=== PATIENT | female | born 1935 | race African-American/Black ===

== ENCOUNTER 2023-10-13 14:35 | Inpatient (IN) | payer OTHER ==
[~2023-10-13] VITALS: Ht 160 cm; Wt 81.8 kg
[2023-10-13 01:56] VITALS: PULSE 81; RESP 18; O2SAT 95
[2023-10-13 16:56] LABS: Basophils # (auto) 0 10 ^3/uL (0-0.2); Basophils % (auto) 0.5 % (0.0-2.0); Eosinophils # (auto) 0.2 10 ^3/uL (0-0.8); Eosinophils % (auto) 3.8 % (0.0-7.0); Hematocrit 28.3 % (36.0-46.0); Hemoglobin 9.6 g/dL (12.2-16.2); Lymphocytes # (auto) 1.7 10 ^3/uL (0.4-5.4); Lymphocytes % (auto) 34.6 % (10.0-50.0); Mean Corpuscular Hemoglobin 28.1 pg (28.0-32.0); Mean Corpuscular Volume 82.7 fL (80.0-100.0); Monocytes # (auto) 0.4 10 ^3/uL (0-1.3); Monocytes % (auto) 8.1 % (0.0-12.0); Neutrophils # (auto) 2.6 10 ^3/uL (1.6-8.6); Red Blood Cells 3.43 10^6/uL (4.0-5.20); Red Cell Distribution Width 19.6 % (11.8-14.3); White Blood Cell 4.9 10^3/uL (4.4-10.8)
[2023-10-13 17:08] LABS: Albumin 2.7 g/dL (3.2-4.8); Alkaline Phosphatase 32 U/L (46-116); Anion Gap 0 (5-15); Aspartate Aminotransferase 21 U/L (13-40); BUN/Creatinine Ratio 9.9 (10.0-20.0); Blood Urea Nitrogen 8 mg/dL (9-23); Calcium 8.8 mg/dL (8.7-10.4); Carbon Dioxide 37 mmol/L (20-30); Chloride 98 mmol/L (98-107); Glucose 99 mg/dL (74-106); Lipase 22 U/L (12-53); Potassium 3.7 mmol/L (3.5-5.1); Sodium 135 mmol/L (136-145)
[2023-10-13 17:09] LABS: Alanine Aminotransferase < 9 U/L (7-40); Bilirubin, Total 0.4 mg/dL (0.2-1.0)
[2023-10-13] MEDS ORDERED: FLUC150T47 PO (17:29)
[2023-10-13] MEDS ORDERED: PANT40TA57 PO (17:29)
[2023-10-13] MEDS ORDERED: PREG75CA90 PO (17:29)
[2023-10-13] MEDS ORDERED: ALPR1TAB7 PO (17:29)
[2023-10-13] MEDS ORDERED: ACETAMINOPHEN 325 MG TAB PO PRN (17:30)
[2023-10-13 18:12] LABS: Triglycerides 91 mg/dL (< 150)
[2023-10-13 18:13] LABS: LDL Cholesterol 78 mg/dL (< 100)
[2023-10-13 18:15] LABS: Cholesterol 122 mg/dL (< 200); HDL Cholesterol 36 mg/dL (40-59)
[2023-10-13 19:28] LABS: Anisocytosis Slight; Large Platelets FEW; Macrocytosis Slight; Platelet Estimate Decrea
[2023-10-13 22:30] VITALS: PULSE 76; RESP 15; O2SAT 98
[2023-10-14] MEDS: LACTULOSE 20Gm/30ML SOLN PO ONE (00:02)
[2023-10-14] MEDS: ASCORBIC ACID 500 MG TAB PO SCH (00:11)
[2023-10-14] MEDS: LACTULOSE 20Gm/30ML SOLN PO SCH (00:12)
[2023-10-14] MEDS: FLEET ENEMA(ADULT) 135 ML PR ONE (00:12)
[2023-10-14] MEDS: SODIUM CHLORIDE 0.9% 1,000 ML IV SCH (00:21)
[2023-10-14] MEDS ORDERED: CETI10CA PO (02:00)
[2023-10-14 03:03] VITALS: BP 102/37; PULSE 93; RESP 18; TEMP 98.6; O2SAT 95
[2023-10-14 05:00] VITALS: BP 104/34; PULSE 65; RESP 17; TEMP 97.8; O2SAT 100
[2023-10-14 06:40] LABS: Albumin 2.6 g/dL (3.2-4.8); Alkaline Phosphatase 32 U/L (46-116); Anion Gap 3 (5-15); Aspartate Aminotransferase 21 U/L (13-40); BUN/Creatinine Ratio 8.9 (10.0-20.0); Blood Urea Nitrogen 8 mg/dL (9-23); Calcium 8.4 mg/dL (8.7-10.4); Carbon Dioxide 33 mmol/L (20-30); Chloride 100 mmol/L (98-107); Glucose 98 mg/dL (74-106); Potassium 3.9 mmol/L (3.5-5.1); Sodium 136 mmol/L (136-145)
[2023-10-14 06:41] LABS: Bilirubin, Total 0.5 mg/dL (0.2-1.0); Total Protein 5.7 g/dL (5.7-8.2)
[2023-10-14 06:42] LABS: Alanine Aminotransferase < 9 U/L (7-40)
[2023-10-14 06:44] LABS: Basophils # (auto) 0 10 ^3/uL (0-0.2); Basophils % (auto) 0.6 % (0.0-2.0); Eosinophils # (auto) 0.1 10 ^3/uL (0-0.8); Eosinophils % (auto) 2.3 % (0.0-7.0); Hematocrit 28.1 % (36.0-46.0); Hemoglobin 9.3 g/dL (12.2-16.2); Lymphocytes # (auto) 1.6 10 ^3/uL (0.4-5.4); Lymphocytes % (auto) 30.9 % (10.0-50.0); Mean Corpuscular Hemoglobin 27.4 pg (28.0-32.0); Mean Corpuscular Volume 83.1 fL (80.0-100.0); Monocytes # (auto) 0.4 10 ^3/uL (0-1.3); Monocytes % (auto) 7.1 % (0.0-12.0); Neutrophils % (auto) 59.1 % (37.0-80.0); Nucleated Red Blood Cells % 0.1 %; Red Blood Cells 3.39 10^6/uL (4.0-5.20); Red Cell Distribution Width 18.9 % (11.8-14.3); White Blood Cell 5.1 10^3/uL (4.4-10.8)
[2023-10-14 08:00] VITALS: PULSE 82; RESP 18; O2SAT 94
[2023-10-14 09:00] VITALS: BP 115/42; PULSE 69; RESP 18; TEMP 98.8; O2SAT 96
[2023-10-14] MEDS: ZINC SULFATE 220mg CAP or TAB PO SCH (10:00)
[2023-10-14] MEDS: MULTIPLE VITAMIN TAB PO SCH (10:00)
[2023-10-14] MEDS: ENOXAPARIN SOD 40 MG/0.4 ML SYRINGE SC SCH (10:00)
[2023-10-14] MEDS ORDERED: SENN-62 PO (12:14)
[2023-10-14 13:00] VITALS: BP 117/42; PULSE 74; RESP 17; TEMP 98.6; O2SAT 96
[2023-10-14 15:53] VITALS: BP 116/61; PULSE 76; RESP 18; TEMP 98.3; O2SAT 95
== END 2023-10-14 16:00 | disposition home or self-care (01) | DRG 388 ==
LOC: EDBD 14:35 → ER 14:35 → OVERFLOW 17:27 → CENTRAL 10-14 01:49
PROVIDERS: ADMIT Nurse Practitioner Family; ATTEND Internal Medicine Geriatric Medicine
DX: K56.41 Fecal impaction (principal); E43 Unspecified severe protein-calorie malnutrition; D64.9 Anemia, unspecified; G50.0 Trigeminal neuralgia; I25.2 Old myocardial infarction; Z86.73 Personal history of transient ischemic attack (TIA), and cerebral infarction without residual deficits; Z90.49 Acquired absence of other specified parts of digestive tract; Z90.710 Acquired absence of both cervix and uterus; Z95.0 Presence of cardiac pacemaker; Z68.31 Body mass index [BMI] 31.0-31.9, adult; Z74.01 Bed confinement status
CPT/HCPCS: 36415; 74176; 80053; 80061; 83690; 84443; 85025; G0378